=== PATIENT | female | born 1945 | race Caucasian/White ===

== ENCOUNTER 2018-04-15 10:46 | Observation (INO) | payer OTHER ==
[~2018-04-15] VITALS: Ht 152.4 cm; Wt 81.2 kg
--- NOTE | 2018-04-15 10:48 | NUR ---
PT BIBA ALS TO BED 3
[2018-04-15 10:55] VITALS: BP 172/79
[2018-04-15] MEDS ORDERED: NACL 0.9% 1,000 ML IV ONE (10:55)
[2018-04-15] MEDS ORDERED: MORPHINE SULFATE 4 MG/ML SYR IVP ONE (10:55)
[2018-04-15] MEDS ORDERED: ONDANSETRON 4 MG/2 ML VIAL IVP ONE (11:20)
[2018-04-15] MEDS ORDERED: KETOROLAC 30 MG/ML VIAL IVP ONE (11:20)
--- NOTE | 2018-04-15 11:50 | NUR ---
ED MD PATINO AWARE OF ALOC FOR PATIENT.
[2018-04-15 12:07] LABS: BASOPHILS # (AUTO) 0.1 K/uL (0.00-0.22); BASOPHILS % (AUTO) 0.9 % (0.0-2.0); EOSINOPHILS % (AUTO) 0.7 % (0.0-4.0); HEMATOCRIT 38.4 % (36-48); LYMPHOCYTES # (AUTO) 1.1 K/uL (2.5-16.5); MEAN CORPUSCULAR HEMOGLOBIN 31 pg (27-31); MEAN CORPUSCULAR HGB CONC 34 g/dL (33-37); MEAN CORPUSCULAR VOLUME 91.8 fL (80-94); MONOCYTES # (AUTO) 0.4 K/uL (0.8-1.0); MONOCYTES % (AUTO) 5.5 % (1.7-9.3); NEUTROPHILS # (AUTO) 5.5 K/uL (1.8-7.7); NEUTROPHILS % (AUTO) 77.9 % (42.2-75.2); PLATELET COUNT (AUTO) 195 K/uL (140-450); RED BLOOD CELL COUNT(AUTO) 4.18 MIL/uL (4.20-5.40); RED CELL DISTRIBUTION WIDTH 13.1 % (11.6-13.7)
--- NOTE | 2018-04-15 12:20 | NUR ---
HELPED PATIENT TO BATHRROM, COLLECTED URINE. PATIENT RESTING COMFORTABLY. URINE SENT TO LAB.
[2018-04-15 12:57] LABS: ANION GAP 17.3 (8-16); CARBON DIOXIDE 20.3 mmol/L (21-32); CREATININE 1.4 mg/dL (0.6-1.3); POTASSIUM 4.6 mmol/L (3.5-5.1)
[2018-04-15] MEDS ORDERED: INSULIN REGULAR, HUMAN 100 UNIT/ML VIAL SUBQ ONE (13:05)
[2018-04-15 13:15] LABS: ALBUMIN 2.4 g/dL (3.4-5.0); TOTAL BILIRUBIN 0.6 mg/dL (0.0-1.0)
--- NOTE | 2018-04-15 13:33 | NUR ---
PATIENT TALKING ON CELLPHONE AND LAUGHING UPON ENTERING ROOM. PATIENT WITH NO COMPLAINTS. ALL NEEDS MET AT THIS TIME. WILL CONTINUE TO MONITOR.
[2018-04-15] MEDS ORDERED: LORazepam 2 MG/ML VIAL IVP PRN (13:40)
[2018-04-15] MEDS ORDERED: NITROGLYCERIN 0.4 MG TAB SL PRN (13:40)
[2018-04-15] MEDS ORDERED: ACETAMINOPHEN 325 MG TAB PO PRN (13:40)
[2018-04-15] MEDS ORDERED: ONDANSETRON 4 MG/2 ML VIAL IVP PRN (13:40)
[2018-04-15 14:25] VITALS: BP 186/80
--- NOTE | 2018-04-15 14:30 | NUR ---
PATIENT BROUGHT OVER TO THE UNIT VIA GURNEY FROM THE ER. WAS ABLE WALK TO THE BED FROM THE GURNEY. IN STABLE CONDITION AT THIS TIME. HAS IV TO THE RIGHT HAND 20G, SALINE LOCK AT THIS TIME. ORIENTED PATIENT TO THE ROOM, EXPLAINED CALL LIGHT AND PATIENT VERBALIZED UNDERSTANDING. HAS HER PURSE IS WITH HER AND WANTS TO KEEP IT WITH HER. BED IN LOWEST POSITION, SIDE RAILS UP X2, CALL LIGHT WITHIN REACH. WILL CONTINUE TO MONITOR.
--- NOTE | 2018-04-15 14:30 | NUR ---
Patient will be admitted to care of DR BAUER. Admited to TELE. Will go to room 107B. Belongings list completed. Report to JASPER DAVIDSON.
[2018-04-15 14:41] LABS: APPEARANCE,URINE CLEAR (CLEAR); BILIRUBIN,URINE 1+ (NEGATIVE); BLOOD, URINE 1+ (NEGATIVE); COLOR,URINE YELLOW (YELLOW); LEUKOCYTE ESTERASE ,URINE NEGATIVE (NEGATIVE); NITRITE, URINE NEGATIVE (NEGATIVE); UGLUCOSE 1+ (NEGATIVE)
[2018-04-15 14:59] LABS: RBC,URINE 0-5 (RARE) /HPF (0-5); WBC,URINE 0-5 (RARE) /HPF (0-5)
[2018-04-15 15:02] LABS: BARBITURATE, URINE NEGATIVE ng/ml (NEG <=200); BENZODIAZEPINE, URINE NEGATIVE ng/mL (NEG <=200); CANNABINOID, URINE NEGATIVE ng/mL (NEG <=50); COCAINE, URINE NEGATIVE ng/mL (NEG <=300); OPIATE, URINE NEGATIVE ng/mL (NEG <=2000); PHENCYCLIDINE SCREEN,URINE NEGATIVE ng/mL (NEG <=25)
[2018-04-15] MEDS ORDERED: traMADol 50 MG TAB PO PRN (16:10)
[2018-04-15] MEDS: MORPHINE SULFATE 2 MG/ML SYR IVP PRN ×2 (16:16→20:00)
[2018-04-15] MEDS ORDERED: DEXTROSE 50% 50 ML SYR IVP PRN (16:50)
--- NOTE | 2018-04-15 19:20 | NUR ---
ENDORSED PATIENT TO MOTOR VEHICLE EXAMINER RN FOR CONTINUITY OF CARE. PATIENT IN STABLE CONDITION.
--- NOTE | 2018-04-15 19:21 | NUR ---
RECEIVED PT FROM PM NURSE AT THE BEDSIDE FOR THE CONTINUITY OF CARE. INTRODUCED SELF TO PT AND UPDATED THE BOARD. PT STABLE AT THIS TIME. WILL CONTINUE TO MONITOR.
[2018-04-15 19:50] VITALS: BP 183/92
[2018-04-15 20:16] LABS: CREATINE KINASE MB 1.4 ng/mL (0-3.6)
--- NOTE | 2018-04-15 20:38 | NUR ---
RECEIVED PATIENT ON ROOM AIR. O2 SAT 99%. NO RESPIRATORY DISTRESS NOTED AT THIS TIME. WILL CONTINUE TO MONITOR.
[2018-04-15] MEDS ORDERED: SIMVASTATIN 20 MG TAB PO SCH (21:00)
[2018-04-15] MEDS: NACL 0.9% 1,000 ML IV SCH (21:18)
--- NOTE | 2018-04-15 21:18 | NUR ---
IV FLUIDS OF NS 1L @80ML/HR STARTED AT THIS TIME.
[2018-04-15] MEDS: METOPROLOL 25 MG TAB PO SCH (21:21)
[2018-04-15] MEDS: BLOOD GLUCOSE MONITORING 1 DEV DEV FS SCH (21:58)
[2018-04-15] MEDS: INSULIN LISPRO SLIDING SCALE 100 UNITS/ML VIAL SUBQ PRN (21:59)
[2018-04-15 22:30] VITALS: BP 210/89
--- NOTE | 2018-04-15 22:50 | NUR ---
PAGED DR BAUER , DR FLETCHER SHREDDER OPERATOR. CALLED BACK. MADE AWARE OF THE BLOOD PRESSURE STILL ELEVATED AFTER GIVING LOPRESSOR . BP 210/89. NEW ORDERS RECEIVED .
[2018-04-15] MEDS ORDERED: hydrALAZINE 20 MG/ML VIAL IVP PRN (22:55)
[2018-04-15] MEDS ORDERED: NIFEdipine 90 MG TABER PO SCH ×2 (23:00→23:30)
[2018-04-15 23:20] VITALS: BP 135/52
--- NOTE | 2018-04-15 23:20 | NUR ---
RECHECKED BP , 135/52 , HR 58 NOTED AT THIS TIME. HYDRALAZINE IV WITHHOLD. WILL CONTINUE TO MONITOR PT.
[2018-04-16 00:30] VITALS: BP 155/47
--- NOTE | 2018-04-16 02:30 | NUR ---
MADE ROUNDS. PT ASLEEP AFTER TYLENOL GIVEN FOR HEADACHE. WILL CONTINUE TO MONITOR.
[2018-04-16] MEDS ORDERED: NIFEdipine 30 MG TABER PO ONE (03:49)
[2018-04-16 03:50] VITALS: BP 162/78
[2018-04-16 04:37] LABS: CARBON DIOXIDE 23.8 mmol/L (21-32); CREATININE 1.3 mg/dL (0.6-1.3)
[2018-04-16] MEDS: NACL 0.9% 1,000 ML IV SCH (04:45)
[2018-04-16 04:59] LABS: ANION GAP 11.4 (8-16); POTASSIUM 4.2 mmol/L (3.5-5.1)
--- NOTE | 2018-04-16 05:52 | NUR ---
ASSISTED TO BATHROOM . VOIDED WELL. PT WITH MILD WEAKNESS. WILL CONTINUE TO MONITOR.
[2018-04-16] MEDS: BLOOD GLUCOSE MONITORING 1 DEV DEV FS SCH ×2 (06:35→11:30)
[2018-04-16] MEDS: INSULIN LISPRO SLIDING SCALE 100 UNITS/ML VIAL SUBQ PRN ×2 (06:36→12:36)
--- NOTE | 2018-04-16 06:36 | NUR ---
BS WAS CHECKED. BS 159 NOTED. ADMINISTER 2 UNITS OF HUMALOG.
--- NOTE | 2018-04-16 07:15 | NUR ---
ENDORSED PT TO AM NURSE FOR CONTINUITY OF CARE. PT IN STABLE CONDITION.
--- NOTE | 2018-04-16 07:16 | NUR ---
RECEIVED REPORT FROM BROADCAST DIRECTOR OPERATIONS RN. PATIENT IS AAOX4, NO SIGNS AND SYMPTOMS OF ACUTE DISTRESS NOTED AT THIS TIME. HAS IV TO THE RIGHT HAND 20G, INFUSING NORMAL SALINE AT 80 ML/HR. SITE IS CLEAN, DRY, PATENT AND INTACT. DISCUSSED PLAN OF CARE WITH PATIENT AND SHE VERBALIZED UNDERSTANDING. BED IN LOWEST POSITION, SIDE RAILS UP X2, CALL LIGHT WITHIN REACH. FALL PRECAUTIONS IN PLACE. WILL CONTINUE TO MONITOR.
[2018-04-16 08:00] VITALS: BP 162/71
[2018-04-16] MEDS ORDERED: ASPIRIN 81 MG TAB.CHEW PO SCH (09:00)
[2018-04-16] MEDS ORDERED: NIFEdipine 90 MG TABER PO SCH (09:00)
[2018-04-16] MEDS ORDERED: ENOXAPARIN 30 MG/0.3 ML SYR SUBQ SCH (09:00)
[2018-04-16] MEDS ORDERED: LISINOPRIL 20 MG TAB PO SCH (09:00)
[2018-04-16] MEDS ORDERED: ENOXAPARIN 40 MG/0.4 ML SYR SUBQ SCH (09:00)
[2018-04-16] MEDS: METOPROLOL 25 MG TAB PO SCH (09:16)
[2018-04-16 12:00] VITALS: BP 112/51
--- NOTE | 2018-04-16 13:41 | NUR ---
PATIENT HAS BEEN SCREENED AND CATEGORIZED HIGH NUTRITION RISK. PATIENT WILL BE SEEN WITHIN 1-2 DAYS OF ADMISSION. 04/16/18 04/17/[address]
--- NOTE | 2018-04-16 13:50 | NUR ---
STOPPED IV FLUIDS AT THIS TIME.
--- NOTE | 2018-04-16 14:00 | NUR ---
Initial review faxed to [facility]
[2018-04-16] MEDS ORDERED: NAPR-54 PO (14:39)
[2018-04-16 14:53] LABS: CREATINE KINASE MB 1.6 ng/mL (0-3.6)
--- NOTE | 2018-04-16 15:35 | NUR ---
PATIENT HAS DISCHARGE ORDER IN PLACE. INSTRUCTED HER TO FOLLOW UP WITH PRIMARY CARE PHYSICIAN AND [facility]. SHE VERBALIZED UNDERSTANDING. REMOVED IV FROM SITE AT THIS TIME. ALL BELONGINGS ARE WITH PATIENT. PATIENT IS IN STABLE CONDITION. WILL WHEEL HER OUT.
--- NOTE | 2018-04-17 15:37 | NUR ---
RECEIVED CALL FROM DARLING FROM [facility]. SHE ASKED ME TO FAX FACE SHEET, H&P AND DISCHARGE SUMMARY AND ORDER FOR FU WITH [facility] CLINIC TO HER AT [phone]. SHE ASKED ME TO FAX THE ORDER TO [facility] AT [phone], WHICH I DID.
== END 2018-04-16 15:35 | disposition home or self-care (01) ==
LOC: MED 10:46 → MTU 14:22
PROVIDERS: ADMIT Hospitalist; ATTEND Hospitalist
DX: R07.2 Precordial pain (principal); E11.9 Type 2 diabetes mellitus without complications; E78.5 Hyperlipidemia, unspecified; F32.9 Major depressive disorder, single episode, unspecified; I10 Essential (primary) hypertension; N17.9 Acute kidney failure, unspecified; E86.0 Dehydration; R45.851 Suicidal ideations; Z86.73 Personal history of transient ischemic attack (TIA), and cerebral infarction without residual deficits; Z91.19 Patient's noncompliance with other medical treatment and regimen
CPT/HCPCS: 36415; 71045; 71100; 80048; 80053; 80305; 81001; 82550; 82553; 82948; 83880; 84443; 84484; 85025; 87081; 93005; 93307; 94760; 96361; 96372; 96374; 96375; 96376; 99285; G0378; J1650; J1815; J1885; J2270; J2405; J7030; Q0092; J0360